=== PATIENT | male | born 1975 | race Two or more races ===

== ENCOUNTER 2019-11-18 05:36 | Day surgery (SDC) | payer OTHER ==
[~2019-11-18] VITALS: Ht 177.8 cm; Wt 108.9 kg
[2019-11-18] VITALS (12 sets, daily range): BP systolic 90–118; BP diastolic 46–70
[~2019-11-18 05:36] MED LIST: TRAMADOL HCL50 MG ORAL
[2019-11-18] MEDS ORDERED: oxyCONTIN 20mg tab ORAL ONE (06:00)
[2019-11-18] MEDS ORDERED: ceFAZolin 1gm IVPB IVPB ONE ×2 (06:00)
[2019-11-18] MEDS ORDERED: celeBREX 200mg Cap **SURGERY PATIENTS ONLY ORAL ONE (06:00)
[2019-11-18] MEDS ORDERED: TYLENOL EXTRA500 MG ORAL (06:10)
--- NOTE | 2019-11-18 07:12 | Pre-Procedure Note/Attestation ---
Pre-Procedure Note/Attestation Complete Prior to Procedure Planned Procedure: left Procedure Narrative: shoulder arthroscopy, sad Indications for Procedure Pre-Operative Diagnosis: left shoulder internal derangment Attestation I attest that I discussed the nature of the procedure; its benefits; risks and complications; and alternatives (and the risks and benefits of such alternatives ), prior to the procedure, with the patient (or the patient's legal physician relations representative). I attest that, if there was a reasonable possibility of needing a blood transfusion, the patient (or the patient's legal physician relations representative) was given the [facility] standardized written summary, pursuant to the Clint Surendra Blood Safety Act ([place] Health and Safety Code # 1645, as amended). I attest that I re-evaluated the patient just prior to the surgery and that there has been no change in the patient's H&P, except as documented below: Fito Cavanaugh MD November 18, 2019 07:12
--- NOTE | 2019-11-18 07:12 | Operative Note - PDOC ---
Operative Note Operative Note Pre-op Diagnosis: left shoulder internal derangment Procedure: see op report Post-op Diagnosis: same as pre-op plus Operative Findings: consistent w/pre-op dx studies Anesthesia: regional, MAC Specimen: none Complications: none Condition: stable Estimated Blood Loss: none Implant(s) used?: No Fito Cavanaugh MD November 18, 2019 07:12
[2019-11-18] MEDS ORDERED: D5 1/2NS 1,000 ML IV SCH ×2 (07:15)
[2019-11-18] MEDS ORDERED: HYDROcodone/Acetamin 5/325 tab ORAL PRN ×2 (07:15)
[2019-11-18] MEDS ORDERED: Tylenol #3 tab (300mg/30mg) ORAL PRN ×2 (07:15)
[2019-11-18] MEDS ORDERED: HYDROmorphone 1mg/ml Carpuject SUBQ PRN ×2 (07:15)
[2019-11-18] MEDS ORDERED: Ketorolac 30mg Inj ONE (07:23)
[2019-11-18] MEDS ORDERED: Bupivacaine 0.25% Inj 30ml INJ ONE (07:23)
[2019-11-18] MEDS ORDERED: Kenalog-40 1ml Vial ONE (07:23)
[2019-11-18] MEDS ORDERED: Rocuronium Bromide 100mg/10ml Inj IV ONE (07:24)
[2019-11-18] MEDS ORDERED: Duramorph PF 5mg/10ml amp ONE (07:26)
--- NOTE | 2019-11-18 07:49 | Anethesia Preoperative Eval ---
Anesthesia Pre-op PMH/ROS General Date of Evaluation: November 18, 2019 Time of Evaluation: 07:49 Anesthesiologist: michael ASA Score: ASA 3 Mallampati Score Class I : Soft palate, uvula, fauces, pillars visible Class II: Soft palate, uvula, fauces visible Class III: Soft palate, base of uvula visible Class IV: Only hard plate visible Mallampati Classification: Class III Surgeon: adria Diagnosis: shoulder pain Surgical Procedure: left shoulder arthroscopy Anesthesia History: none Social History: smoking, current smoker Family History: no anesthesia problems Allergies: Coded Allergies: ADHESIVE TAPE (Verified Allergy, Severe, rash, 11/18/19) PLASTIC MEDICAL TAPE Medications: see eMAR Patient NPO?: Yes NPO Date: November 18, 2019 NPO Time: 00:01 Past Medical History Cardiovascular: Denies: HTN, CAD, AR, valve dz, arrhythmia, other Pulmonary: Reports: RANGEL - with cpap; Denies: asthma, COPD, other Gastrointestinal/Genitourinary: Denies: GERD, CRI, ESRD, other Neurologic/Psychiatric: Denies: dementia, CVA, depression/anxiety, TIA, other Endocrine: Denies: DM, hypothyroidism, steroids, other HEENT: Reports: other - recent right eye surgery - 2 weeks ago/ redness noted/ s/p nasal fx as well; Denies: cataract (L), cataract (R), glaucoma, CHEESH-NA (L), CHEESH-NA (R) Hematology/Immune: Denies: anemia, DVT, bleeding disorder, other Musculoskeletal/Integumentary: Denies: OA, RA, DJD, DDD, edema, other Other: obesity PSxH Narrative: gastric sleeve Anesthesia Pre-op Phys. Exam Physician Exam Last Vital Signs Date Time Temp Pulse Resp B/P (MAP) Pulse Ox O2 Delivery O2 Flow Rate FiO2 11/18/19 06:17 97.1 60 18 99/59 98 Room Air Constitutional: NAD Neurologic: CN 2-12 intact Cardiovascular: RRR Respiratory: CTA Gastrointestinal: S/NT/ND Airway Exam Mallampati Classification 3 Mallampati Score: Class III MO: full Neck: thick TMD: 1fb ROM: full Dentures: no upper, no lower Anesthesia Pre-op A/P Studies Pre-op Studies: EKG - sr Risk Assessment & Plan Plan: general with peripheral nerve block Pre-Antibiotics Drug: ancef Given Within 1 Hr of Incision: Yes Time Given: 08:15 Lisa Kinney CRNA November 18, 2019 07:49
[2019-11-18] MEDS ORDERED: fentaNYL 100 mcg/2 mL IV ONE (07:58)
[2019-11-18] MEDS ORDERED: Midazolam 2mg/2ml Inj ONE (07:59)
[2019-11-18] MEDS ORDERED: DiphenhydrAMINE 50mg/ml Inj IVP PRN (08:00)
[2019-11-18] MEDS ORDERED: LR 1000ml ONE (08:00)
[2019-11-18] MEDS ORDERED: Metoclopramide 10mg/2ml Inj IVP PRN (08:00)
[2019-11-18] MEDS ORDERED: NS Irrig 4000ml IRRIG ONE ×2 (08:00→09:14)
[2019-11-18] MEDS ORDERED: fentaNYL 100 mcg/2 mL IV PRN (08:00)
[2019-11-18] MEDS ORDERED: Hydromorphone 0.5mg/0.5ml inj IVP PRN (08:00)
[2019-11-18] MEDS ORDERED: ePHEDrine 50mg/ml Inj ONE (08:00)
[2019-11-18] MEDS ORDERED: Metoclopramide 10mg/2ml Inj ONE (08:37)
[2019-11-18] MEDS ORDERED: Lidocaine 1% MPF 10mg/ml 5ml ONE (08:37)
[2019-11-18] MEDS ORDERED: Glycopyrrolate 0.2mg/ml 1ml Vial ONE (09:22)
[2019-11-18] MEDS ORDERED: Neostigmine 1mg/ml 10ml Inj ONE (09:22)
--- NOTE | 2019-11-18 09:57 | Immediate Post-Op Evaluation ---
Immediate Post-Op Evalulation Immediate Post-Op Evalulation Procedure: left shoulder decompression Date of Evaluation: November 18, 2019 Time of Evaluation: 09:56 IV Fluids: 800 Blood Pressure Systolic: 118 Blood Pressure Diastolic: 60 Pulse Rate: 70 Respiratory Rate: 14 O2 Sat by Pulse Oximetry: 98 Temperature (Fahrenheit): 97.6 Nausea: No Vomiting: No Complications none Patient Status: awake, reacts, patent Hydration Status: adequate Drug: ancef Given Within 1 Hr of Incision: Yes Time Given: 08:15 Lisa Kinney CRNA November 18, 2019 09:57
--- NOTE | 2019-11-18 13:07 | 48 Hour Post Anesthesia Eval ---
Post Anesthesia Evaluation Procedure: left shoulder decompression Date of Evaluation: November 18, 2019 Time of Evaluation: 13:07 Blood Pressure Systolic: 115 0: 70 Pulse Rate: 75 Respiratory Rate: 14 Temperature (Fahrenheit): 97.9 Airway: patent Nausea: No Vomiting: No Pain Intensity: 0 Hydration Status: adequate Cardiopulmonary Status: stable Mental Status/LOC: patient returned to baseline Post-Anesthesia Complications: none Follow-up care needed: N/A Lisa Kinney CRNA November 18, 2019 13:07
--- NOTE | 2019-11-18 20:15 | Operative Note - Dictated ---
DATE OF OPERATION: 11/18/2019 PREOPERATIVE DIAGNOSES: 1. Left shoulder rotator cuff tear. 2. Left shoulder impingement syndrome. POSTOPERATIVE DIAGNOSES: 1. Left shoulder partial superior subscap tear. 2. Left shoulder full-thickness rotator cuff tear involving supraspinatus. 3. Impingement syndrome/bursitis. 4. Os acromiale. PROCEDURES: 1. Left shoulder arthroscopy, extensive debridement. 2. Left shoulder subacromial decompression bursectomy. 3. Arthroscopic rotator cuff repair. DESCRIPTION OF PROCEDURE: After informed consent was obtained, the patient was taken to the operating room. The patient was placed under general anesthesia interscalene. Left shoulder was prepped and draped in a sterile manner. Time-out was performed. Ancef was administered. Posterolateral stab incision was then made. Trocar introduced into the shoulder joint. There is tearing along the superior border of the subscap as well as on the articular side of the rotator cuff. Shaver was then placed in the rotator interval. Debridement of the subscapular and articular side of the rotator cuff was then performed. It looked like it was relatively intact. Therefore, the camera was then placed in the subacromial space. Complete bursectomy was performed. The patient was noted to have os acromiale. The undersurface of the acromion was identified. A 3 mm off the anterior lateral aspect of the acromion was removed from lateral to medial and then from posterior to anterior. At this point, a complete bursectomy was performed. Once this was done, there was noted to be a full-thickness tear along the anterior edge of the supraspinatus. Arthroscopic repair was then performed. Instruments were then removed. Portal sites were closed with 3-0 Monocryl sutures. Steri-Strips and sterile dressing were applied. ESTIMATED BLOOD LOSS: None. COMPLICATIONS: None. SPECIMENS: None. IMPLANTS: Include 2 Biomet rotator cuff anchors. Fito Cavanaugh M.D. DR: MAT JOB#: [id number] CC:
== END 2019-11-18 12:00 | disposition home or self-care (01) ==
LOC: SUR 05:36
DX: S46.812A Strain of other muscles, fascia and tendons at shoulder and upper arm level, left arm, initial encounter (principal); M75.122 Complete rotator cuff tear or rupture of left shoulder, not specified as traumatic; M75.42 Impingement syndrome of left shoulder; M71.9 Bursopathy, unspecified; M94.8X9 Other specified disorders of cartilage, unspecified sites; X58.XXXA Exposure to other specified factors, initial encounter; Y92.9 Unspecified place or not applicable; F17.200 Nicotine dependence, unspecified, uncomplicated; G47.33 Obstructive sleep apnea (adult) (pediatric); E66.9 Obesity, unspecified; Z68.34 Body mass index [BMI] 34.0-34.9, adult
CPT/HCPCS: 29823; 29826; 29827; 94003; C1713; J0690; J2250; J2405; J2704; J2710; J2765; J3010; J3490; J7120; 94150